=== PATIENT | male | born 1940 | race Asian ===

== ENCOUNTER 2018-01-15 14:33 | Inpatient (IN) | payer MEDICARE ==
[~2018-01-15] VITALS: Ht 162.6 cm; Wt 72.6 kg
[2018-01-15 14:40] VITALS: BP 152/69
[2018-01-15] MEDS ORDERED: LOSARTAN POTASS25 MG ORAL (15:25)
[2018-01-15] MEDS ORDERED: AMLODIPINE BESY10 MG ORAL (15:25)
[2018-01-15] MEDS ORDERED: ACETAMINOPHEN325 M1 ORAL (15:25)
[2018-01-15] MEDS ORDERED: CARVEDILOL6.25 MG ORAL (15:25)
[2018-01-15] MEDS ORDERED: HYDRALAZINE HCL10 MG ORAL (15:25)
[2018-01-15] MEDS ORDERED: POLYETHYLENE GL17 GM ORAL (15:25)
[2018-01-15] MEDS ORDERED: SENNA8.6 M2 PO (15:25)
[2018-01-15] MEDS ORDERED: NS 1000ml 2,200 ML IVLG ONE (15:45)
--- NOTE | 2018-01-15 16:02 | Emergency Room Report ---
History of Present Illness General Chief Complaint: Generalized Weakness Source: Patient, Medical Record, EMS Present Illness HPI 78-year-old male with history of hypertension sent from [facility] for fever and generalized weakness. He reports cough, but no pain complaints. History limited due to age. Allergies: Coded Allergies: No Known Allergies (Unverified , 01/15/18) Patient History Past Medical History: see triage record Reviewed Nursing Documentation: PMH: Agreed; PSxH: Agreed Review of Systems All Other Systems: negative except mentioned in HPI Physical Exam Vital Signs Date Time Temp Pulse Resp B/P (MAP) Pulse Ox O2 Delivery O2 Flow Rate FiO2 01/15/18 14:29 99.0 72 14 152/77 99 Room Air Sp02 EP Interpretation: reviewed, normal General Appearance: no apparent distress, alert, non-toxic Head: normocephalic Eyes: bilateral eye normal inspection, bilateral eye PERRL, bilateral eye EOMI ENT: normal ENT inspection, hearing grossly normal, normal pharynx, no angioedema, normal voice, moist mucus membranes Neck: normal inspection, full range of motion, supple, supple/symm/no masses Respiratory: chest non-tender, lungs clear, normal breath sounds, chest symmetrical, palpation of chest normal Cardiovascular #1: normal peripheral pulses, regular rate, rhythm Cardiovascular #2: 2+ radial (R), 2+ radial (L) Gastrointestinal: normal inspection, non tender, soft, no mass, no guarding, no rebound Rectal: deferred Genitourinary: normal inspection, no CVA tenderness Musculoskeletal: back normal, gait/station normal, normal range of motion, non- tender, no calf tenderness Neurologic: alert, responsive, 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 Ramey has requested we admit the patient, we'll admit to [facility]. Diagnosis of fever and generalized weakness. EKG Diagnostic Results EKG Time: 15:54 EP Interpretation: no st elevations, no twi's Rate: normal Rhythm: NSR ST Segments: no acute changes ASA given to the pt in ED: No Rhythm Strip Diag. Results Rhythm Strip Time: 16:00 EP Interpretation: yes Rate: 65 Rhythm: NSR, no PVC's, no ectopy Chest X-Ray Diagnostic Results Chest X-Ray Diagnostic Results : Chest X-Ray Ordered: Yes # of Views/Limited/Complete: 1 View Indication: Other - fever EP Interpretation: Yes PA Xray: Interpretation reviewed Interpretation: no consolidation, no effusion, no pneumothorax, no acute cardiopulmonary disease Impression: No acute disease Electronically Signed by: Jerardo Arriaga MD Last Vital Signs Date Time Temp Pulse Resp B/P (MAP) Pulse Ox O2 Delivery O2 Flow Rate FiO2 01/15/18 14:40 66 17 Room Air 01/15/18 14:40 99.0 152/69 100 Disposition: ADMITTED INPATIENT Condition: Stable Referrals: NON PHYSICIAN (PCP) JERARDO ARRIAGA M.D Jan 15, 2018 16:02
[2018-01-15 16:49] LABS: EOSINOPHILS % (AUTO) 0.9 % (0.0-3.0); HEMATOCRIT 46.8 % (42.0-52.0); HEMOGLOBIN 15.8 G/DL (14.2-18.0); LYMPHOCYTES % (AUTO) 19.2 % (20.0-45.0); MEAN CORPUSCULAR VOLUME 92 FL (80-99); MONOCYTES % (AUTO) 8.6 % (1.0-10.0); NEUTROPHILS % (AUTO) 70.3 % (45.0-75.0); PLATELET COUNT 231 K/UL (150-450); RED CELL DISTRIBUTION WIDTH 10.7 % (11.6-14.8); WHITE BLOOD COUNT 9.3 K/UL (4.8-10.8)
[2018-01-15 16:53] LABS: APPEARANCE,URINE CLEAR; BILIRUBIN, URINE NEGATIVE (NEGATIVE); GLUCOSE, URINE (UA) 2+ (NEGATIVE); KETONES,URINE NEGATIVE (NEGATIVE); LEUKOCYTE ESTERASE ,URINE NEGATIVE (NEGATIVE); NITRITE,URINE NEGATIVE (NEGATIVE); PH,URINE 5 (4.5-8.0); PROTEIN,URINE 2+ (NEGATIVE); UROBILINOGEN,URINE NORMAL MG/DL (0.0-1.0)
[2018-01-15 16:57] LABS: COLOR,URINE YELLOW
[2018-01-15 17:00] LABS: ANION GAP 10 mmol/L (5-15); BLOOD UREA NITROGEN 35 mg/dL (7-18); CALCIUM 9.2 MG/DL (8.5-10.1); CARBON DIOXIDE 27 MMOL/L (21-32); CHLORIDE 104 MMOL/L (98-107); CREATININE 1.3 MG/DL (0.55-1.30); POTASSIUM 4.2 MMOL/L (3.5-5.1); SODIUM 141 MMOL/L (136-145)
[2018-01-15 17:05] LABS: ALANINE AMINOTRANSFERASE 52 U/L (12-78); ALBUMIN 3.8 G/DL (3.4-5.0); ALBUMIN/GLOBULIN RATIO 0.8 (1.0-2.7); ALKALINE PHOSPHATASE 86 U/L (46-116); ASPARTATE AMINO TRANSFERASE 39 U/L (15-37); BILIRUBIN,TOTAL 0.6 MG/DL (0.2-1.0); CREATINE KINASE 369 U/L (26-308)
[2018-01-15 17:06] LABS: INR 0.9 (0.9-1.1)
--- NOTE | 2018-01-15 17:30 | Diagnostic Imaging Report ---
Indication: Chest pain Technique: One view of the chest Comparison: none Findings: There old. There are fracture deformities of the left posterior fourth, fifth, and sixth ribs, which appear subacute or old. There is some scarring in the right lung apex. Lungs and pleural spaces are otherwise clear. Retained acupuncture needles are seen in the left shoulder, and supraclavicular, and axillary region. The heart size is normal. Impression: No acute process. Subacute versus old left fourth through sixth rib fractures. Correlate with clinical finding Retained acupuncture needles
[2018-01-15 19:45] VITALS: BP 109/80
[2018-01-15 21:45] VITALS: BP 152/87
[2018-01-15 23:00] VITALS: BP 150/83
[2018-01-16] VITALS (7 sets, daily range): BP systolic 141–180; BP diastolic 77–99
[2018-01-16] MEDS ORDERED: Miralax 17gm pkt ORAL PRN (00:15)
[2018-01-16] MEDS ORDERED: Acetaminophen 500mg (ES) tab ORAL PRN (00:15)
[2018-01-16] MEDS ORDERED: Sennosides 8.6mg tab ORAL PRN (01:15)
[2018-01-16] MEDS: 1/2NS w/KCl 20mEq 1000ml 1,000 ML IV SCH ×2 (01:26→17:53)
[2018-01-16] MEDS: HydrALAZINE 10mg Tab ORAL SCH ×3 (05:24→17:53)
[2018-01-16 07:16] LABS: BASOPHILS % (AUTO) 0.7 % (0.0-2.0); EOSINOPHILS % (AUTO) 1.1 % (0.0-3.0); HEMATOCRIT 41.8 % (42.0-52.0); HEMOGLOBIN 14.4 G/DL (14.2-18.0); LYMPHOCYTES % (AUTO) 13.5 % (20.0-45.0); MEAN CORPUSCULAR VOLUME 92 FL (80-99); NEUTROPHILS % (AUTO) 76.7 % (45.0-75.0); PLATELET COUNT 225 K/UL (150-450); RED BLOOD COUNT 4.54 M/UL (4.70-6.10); RED CELL DISTRIBUTION WIDTH 10.6 % (11.6-14.8); WHITE BLOOD COUNT 12.5 K/UL (4.8-10.8)
[2018-01-16 07:22] LABS: ANION GAP 9 mmol/L (5-15); BLOOD UREA NITROGEN 22 mg/dL (7-18); CALCIUM 8.5 MG/DL (8.5-10.1); CARBON DIOXIDE 24 MMOL/L (21-32); CHLORIDE 107 MMOL/L (98-107); CREATININE 1.1 MG/DL (0.55-1.30); POTASSIUM 3.6 MMOL/L (3.5-5.1); SODIUM 140 MMOL/L (136-145)
[2018-01-16] MEDS ORDERED: LORazepam Inj 2mg/ml 1ml IV PRN (08:45)
[2018-01-16] MEDS: Carvedilol 6.25mg Tab ORAL SCH ×2 (08:51→22:13)
[2018-01-16] MEDS: Losartan 25mg tab ORAL SCH (08:51)
[2018-01-16] MEDS: Heparin 5000 units/ml inj SUBQ SCH ×2 (08:53→22:18)
--- NOTE | 2018-01-16 11:39 | Diagnostic Imaging Report ---
Indication: Altered mental status Technique: spiral acquisitions obtained through the brain. Angled axial and coronal 5 x 5 mm slices were reconstructed. No IV contrast utilized. Radiation dose was minimized using automated exposure control Total dose length product 2442.09 mGycm. CTDIvol(s) 70.38,70.38,70.38 mGy Comparison: none FINDINGS: No acute hemorrhage or edema. No mass effect or midline shift. There is age-related enlargement of the ventricles and extra axial CSF spaces. There is extensive periventricular deep white matter ischemic change. There is an old lacunar infarct within the right thalamus and a smaller one within the left thalamus. Normal sauceda-white differentiation. There is evidence of prior bilateral cataract surgery. Visualized sinuses are unremarkable. Intact calvarium. IMPRESSION: Chronic and age-related changes. 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
--- NOTE | 2018-01-16 11:53 | Diagnostic Imaging Report ---
APPROVED REPORT CPT Code: 90945 Vascular Symptoms CVA/TIA: CAROTID (BILATERAL) - Imaging reveals no significant plaque within the right and left extracranial carotid arteries. The Doppler spectral flow analysis is within normal limits throughout the extracranial carotid arteries bilaterally. VERTEBRAL- The vertebral arteries are within normal limits.
--- NOTE | 2018-01-16 13:00 | History and Physical Report ---
DATE OF ADMISSION: 01/15/2018 CHIEF COMPLAINT: Altered level of consciousness and generalized weakness. HISTORY OF PRESENT ILLNESS: This is a 78-year-old [place] male from [facility]. The patient is nonverbal and unable to converse. According to the report I got from his primary care physician, Dr. Dayan Ramos, the patient became altered and was sent to this hospital emergency department for further evaluation and management. PAST MEDICAL HISTORY: 1. Status post CVA. 2. Chronic kidney disease. 3. History of thrombocytopenia. 4. Organic brain syndrome. 5. Osteoarthritis. MEDICATIONS: Tylenol, amlodipine, Coreg, hydralazine, losartan, multivitamins, polyethylene glycol, and senna. ALLERGIES: No known drug allergies. FAMILY HISTORY: Unable to obtain due to mental status. SOCIAL HISTORY: Unable to obtain due to mental status. REVIEW OF SYSTEMS: Unable to obtain due to mental status. PHYSICAL EXAMINATION: GENERAL: This is an elderly [place] male, who is in no acute distress. VITAL SIGNS: Blood pressure 141/77, pulse 76 and regular, respirations 18, and temperature 98.5. HEENT: The head is normocephalic and atraumatic. Pupils are equal, round, and reactive to light and accommodation consensually. NECK: Supple. Trachea midline. There was no lymphadenopathy or thyromegaly. LUNGS: Clear to auscultation and percussion. HEART: Regular rate and rhythm without rubs, murmurs, or gallops. ABDOMEN: Soft and nontender. Bowel sounds were active. EXTREMITIES: No clubbing, cyanosis, or edema. NEUROLOGICAL: He is confused. There is right hemiparesis. LABORATORY AND ANCILLARY DATA: CBC notable for white count of 12,500, otherwise within normal limits. Serum chemistry, BUN 22, creatinine 1.1. Urinalysis essentially within normal limits. Chest x-ray shows subacute versus old left fourth through sixth rib fractures. Retained acupuncture needles. ASSESSMENT: Right hemiparesis, duration unknown. PLAN: 1. Obtain CT scan of the brain. 2. Carotid duplex. Yoly Nuñez M.D. DR: LUIS/BORIS JOB#: [id number] CC:
[2018-01-16] MEDS: LORazepam Inj 2mg/ml 1ml IV PRN (15:30)
[2018-01-17] VITALS: BP 150/85
[2018-01-17] MEDS: HydrALAZINE 10mg Tab ORAL SCH ×3 (00:34→12:08)
[2018-01-17 04:00] VITALS: BP 143/80
[2018-01-17 08:02] VITALS: BP 163/91
[2018-01-17] MEDS: Carvedilol 6.25mg Tab ORAL SCH (08:11)
[2018-01-17] MEDS: 1/2NS w/KCl 20mEq 1000ml 1,000 ML IV SCH (08:11)
[2018-01-17] MEDS: Losartan 25mg tab ORAL SCH (08:12)
[2018-01-17] MEDS: Heparin 5000 units/ml inj SUBQ SCH (08:15)
[2018-01-17] MEDS: LORazepam Inj 2mg/ml 1ml IV PRN (08:27)
[2018-01-17 09:26] VITALS: BP 158/88
[2018-01-17 10:20] VITALS: BP 147/88
--- NOTE | 2018-01-17 12:16 | General Progress Note ---
Assessment/Plan Assessment/Plan No clear acute findings. DC to SNF. Subjective Allergies: Coded Allergies: No Known Allergies (Unverified , 01/15/18) Subjective Confused. Eating lunch well. Objective Last 24 Hour Vital Signs Date Time Temp Pulse Resp B/P (MAP) Pulse Ox O2 Delivery O2 Flow Rate FiO2 01/17/18 12:08 141/59 01/17/18 10:20 147/88 (107) 01/17/18 09:26 158/88 (111) 01/17/18 09:00 Room Air 01/17/18 08:12 163/91 01/17/18 08:12 76 163/91 01/17/18 08:11 76 163/91 01/17/18 08:02 97.6 76 20 163/91 (115) 100 01/17/18 06:40 143/80 01/17/18 04:00 97.3 64 20 143/80 (101) 100 01/17/18 00:34 150/85 01/17/18 00:00 97.5 82 20 150/85 (106) 99 01/16/18 22:13 83 148/83 01/16/18 21:00 Room Air 01/16/18 20:00 97.3 83 20 148/84 (105) 100 01/16/18 18:10 84 158/87 (110) 01/16/18 17:53 170/99 01/16/18 16:00 97.5 91 21 170/99 (122) 100 01/16/18 12:39 180/89 01/16/18 12:30 90 169/83 (111) Intake and Output 01/16/18 01/17/18 19:00 07:00 Intake Total 1355 ml 890 ml Balance 1355 ml 890 ml Intake Oral 640 ml 240 ml IV Total 715 ml 650 ml # Voids 6 2 Height (Feet): 5 Height (Inches): 4.00 Weight (Pounds): 160 Objective CV RR Lungs CTA Abs SNT. BS + E No CCE Yoly Nuñez MD Jan 17, 2018 12:16
[2018-01-17 12:23] VITALS: BP 144/79
--- NOTE | 2018-01-17 14:55 | Cardiology Report ---
APPROVED REPORT EKG Measurement Heart [id number] Normal sinus rhythm
--- NOTE | 2018-01-20 08:34 | Discharge Summary ---
Discharge Summary Discharge Summary _ DATE OF ADMISSION: 01/15/2018 DATE OF DISCHARGE: 01/17/2018 REASON FOR ADMISSION: 78 years old male with past medical history of CVA, chronic kidney disease , organic brain syndrome, osteoarthritis, was sent from the long term facility for evaluation due to altered level of consciousness and weakness . Upon evaluation in emergency room vital signs were stable. Laboratory workup revealed no leukocytosis( but next morning leukocytosis 12.5) , BUN 35 creatinine 1.3. Troponin negative , EKG revealed normal sinus rhythm, no acute ischemic changes . Urinalysis showed no evidence of UTI . Stable hemoglobin and hematocrit . Chest x-ray demonstrated subacute versus old left fourth through sixth rib fracture and retained acupuncture needles. Patient admitted with diagnoses of altered level of consciousness, right hemiparesis duration unknown ,generalized weakness. HOSPITAL COURSE: Patient initially received 2 L of IV fluids. CT of the head revealed no acute intracranial pathology, but demonstrated old bilateral thalamic lacunar infarcts. Carotid duplex was unremarkable. Patient was on empiric antibiotics due to leukocytosis. Blood culture were negative. Influenza screen test was negative. No evidence of infection, patient was afebrile . Antibiotic stopped. Blood pressure was managed and optimized with multiply antihypertensive medications, including calcium channel christiano, beta christiano, ARB and hydralazine. DVT prophylaxis provided. Bowel regimen instituted. Patient clinically improved to baseline. Altered level of consciousness initially , was probably due to mild dehydration , superimposed on chronic dementia due to history of extensive cerebrovascular disease and multiply CVAs. Renal parameters and electrolytes were closely monitored. Nephrotoxins were avoided. Prior to discharge BUN from 35 down to 22 , creatinine from 1.3 down to 1.1. Patient was discharged to long term facility for continuation of care FINAL DIAGNOSES: 1.Altered level of consciousness, likely acute ( probably due to dehydration) on chronic ( due to extensive cerebrovascular disease and multiple CVA) 2. Cerebral vascular disease with history of bilateral thalamic lacunar infarcts and right hemiparesis 3. Subacute versus old rib fractures on the left, fourth through six 4. Hypertension DISCHARGE MEDICATIONS: See Medication Reconciliation list. DISCHARGE INSTRUCTIONS: Patient was discharged to the long term facility. Follow up with medical doctor at the facility. I have been assigned to dictate discharge summary for this account. I was not involved in the patient's management. Jessica Luna NP Jan 20, 2018 08:34
== END 2018-01-17 15:15 | DRG 641 ==
LOC: EDBD 14:33 → EMR 15:24 → OBSVTOIN 17:19 → 3E 17:19 → INTOOBSV 17:19 → EDBEDREQ 18:38
DX: E86.0 Dehydration (principal); S22.42XA Multiple fractures of ribs, left side, initial encounter for closed fracture; I69.351 Hemiplegia and hemiparesis following cerebral infarction affecting right dominant side; X58.XXXA Exposure to other specified factors, initial encounter; I12.9 Hypertensive chronic kidney disease with stage 1 through stage 4 chronic kidney disease, or unspecified chronic kidney disease; N18.9 Chronic kidney disease, unspecified; F09 Unspecified mental disorder due to known physiological condition
CPT/HCPCS: 36415; 70450; 71045; 80048; 80053; 81003; 82550; 83605; 83735; 84484; 85025; 85610; 85730; 86710; 87040; 87081; 93005; 93880; 96361; 96365; 99284